=== PATIENT | male | born 1995 ===

== ENCOUNTER 2020-07-07 12:31 | Observation (INO) | payer SELFPAY ==
[~2020-07-07] VITALS: Ht 182.9 cm; Wt 59.1 kg
[~2020-07-07 12:31] MED LIST: BACTROBAN22 TOP; PROAIR HFA0.09 MG/AC IH; TRIAMCINOLONE A15 GM TP; ZYRTEC 10MG10 MG PO
[2020-07-07 13:25] LABS: BASO % 0.3 % (0.0-2.0); EOS % 0.1 % (0-4.0); GRAN # 7.4 (1.4-6.5); GRAN % 82.7 % (42.2-75.2); HEMATOCRIT 49.1 % (42.0-52.0); HEMOGLOBIN 17.3 g/dl (13.5-18.0); LYMPH # 0.9 (1.2-3.4); LYMPH % 10.1 % (20.0-51.0); MEAN CELL VOLUME 86 fl (80.0-100.0); MEAN CORPUSCULAR HEMOGLOBIN 30 pg (27.0-31.0); MEAN CORPUSCULAR HGB CONC 35 g/dl (33.0-37.0); MEAN PLATELET VOLUME 10.6 fl (7.4-10.4); MONO # 0.6 (0.1-0.6); MONO % 6.5 % (1.7-9.3); RED BLOOD COUNT 5.71 M/mm3 (4.20-5.60); REDCELL DISTRIBUTION WIDTH-CV 12.4 % (11.5-14.5)
[2020-07-07 13:27] LABS: ALBUMIN 5.6 gm/dL (3.5-5.0); ALKALINE PHOSPHATASE 134 U/L (50-136); ANION GAP 27 mmol/L (7-16); AST,SGOT 61 U/L (15-37); BILIRUBIN,TOTAL 1.8 mg/dL (0.0-1.0); BLOOD UREA NITROGEN 25 mg/dL (9-20); CALCIUM 10.5 mg/dL (8.4-10.2); CARBON DIOXIDE 15 mmol/L (22-30); CHLORIDE 96 mmol/L (98-107); CREATININE, serum 0.95 (0.66-1.25); GLUCOSE 138 mg/dL (74-106); POTASSIUM 3.7 mmol/L (3.4-5.0); SODIUM 138 mmol/L (137-145); TOTAL PROTEIN 9.6 gm/dL (6.4-8.2)
[2020-07-07 13:29] LABS: ALCOHOL(ethanol),MEDICAL < 10 mg/dL
[2020-07-07 13:34] LABS: ALANINE AMINOTRANSFERASE 36 U/L (4-49)
[2020-07-07 13:52] LABS: PLATELET COUNT 251 K/mm3 (130-400)
[2020-07-07 15:33] LABS: COLLECTION METHOD CLEAN CATCH
[2020-07-07 15:39] LABS: MUCOUS Present /lpf; PH 5 (5-8); SQUAMOUS EPITHELIAL None Seen /hpf; URINE APPEARANCE Clear; URINE BACTERIA None Seen /hpf; URINE BILIRUBIN Negative (NEGATIVE); URINE BLOOD 1+ (NEGATIVE); URINE COLOR Yellow; URINE GLUCOSE Negative (NEGATIVE); URINE KETONE 2+ (NEGATIVE); URINE LEUKOCYTE ESTERASE Negative (NEGATIVE); URINE NITRATE Negative (NEGATIVE); URINE PROTEIN(semi-quant) 2+ (NEGATIVE); URINE UROBILINOGEN Negative (NEGATIVE)
[2020-07-07 15:47] LABS: TRICYCLIC ANTIDEPRESS URINE NEGATIVE
[2020-07-07] MEDS ORDERED: ZOFRAN ODT4 MG PO (17:31)
[2020-07-07 18:08] LABS: ARTERIAL BLD GAS O2 SATURATION 98.5 % (92-100); ARTERIAL BLD GAS TCO2 CT 19.6; ARTERIAL BLOOD GAS HCO3 18.9 meq/L (22-26); ARTERIAL BLOOD GAS PO2 112.5 mmHg (80-100); ARTERIAL BLOOD GAS pH 7.59 (7.35-7.45)
[2020-07-07 18:09] LABS: ARTERIAL BLOOD GAS PCO2 20.1 mmHg (35-45)
[2020-07-07] MEDS ORDERED: ADDERALL15 MG PO (19:58)
[2020-07-07] MEDS ORDERED: LEXAPRO20 MG PO (19:58)
[2020-07-07] MEDS ORDERED: SEROQUEL 200MG200 MG PO (19:58)
[2020-07-07 20:35] LABS: ALBUMIN 4.5 gm/dL (3.5-5.0); BILIRUBIN,TOTAL 1.2 mg/dL (0.0-1.0); CREATININE, serum 0.83 (0.66-1.25); POTASSIUM 3.6 mmol/L (3.4-5.0); TOTAL PROTEIN 7.6 gm/dL (6.4-8.2)
[2020-07-07 21:14] LABS: ARTERIAL BLD GAS TCO2 CT 21.8; ARTERIAL BLOOD GAS BASE EXCESS -2.4 (-2-2); ARTERIAL BLOOD GAS HCO3 20.8 meq/L (22-26); ARTERIAL BLOOD GAS PCO2 31.7 mmHg (35-45); ARTERIAL BLOOD GAS PO2 89.2 mmHg (80-100); ARTERIAL BLOOD GAS pH 7.44 (7.35-7.45)
[2020-07-08 06:19] LABS: BASO # 0.1 (0.0-0.2); BASO % 0.8 % (0.0-2.0); EOS # 0.1 (0.0-0.7); EOS % 1.9 % (0-4.0); GRAN % 46.9 % (42.2-75.2); LYMPH # 2.5 (1.2-3.4); LYMPH % 39.4 % (20.0-51.0); MEAN CELL VOLUME 87 fl (80.0-100.0); MEAN CORPUSCULAR HEMOGLOBIN 30 pg (27.0-31.0); MEAN CORPUSCULAR HGB CONC 35 g/dl (33.0-37.0); MEAN PLATELET VOLUME 9.1 fl (7.4-10.4); MONO # 0.7 (0.1-0.6); MONO % 10.7 % (1.7-9.3); PLATELET COUNT 216 K/mm3 (130-400); RED BLOOD COUNT 4.25 M/mm3 (4.20-5.60); REDCELL DISTRIBUTION WIDTH-CV 12.7 % (11.5-14.5)
[2020-07-08 06:23] LABS: HEMOGLOBIN 12.9 g/dl (13.5-18.0)
[2020-07-08 06:29] LABS: ALBUMIN 3.5 gm/dL (3.5-5.0); BILIRUBIN,TOTAL 0.7 mg/dL (0.0-1.0); CALCIUM 8.2 mg/dL (8.4-10.2); CREATININE, serum 0.78 (0.66-1.25); POTASSIUM 3.6 mmol/L (3.4-5.0); TOTAL PROTEIN 6.1 gm/dL (6.4-8.2)
[2020-07-08] MEDS ORDERED: ZOFRAN ODT4 MG PO (10:28)
[2020-07-08 10:43] VITALS: BP 106/68; PULSE 51; TEMP 98.1
--- NOTE | 2020-07-08 13:32 | NUR ---
Patient discharged from the ED.
== END 2020-07-08 11:19 | disposition home or self-care (01) ==
LOC: COL.ER 12:31 → SURG 18:39
PROVIDERS: Family Medicine; Student in an Organized Health Care Education/Training Program; ADMIT Hospitalist
DX: E87.3 Alkalosis (principal); F12.90 Cannabis use, unspecified, uncomplicated; R11.2 Nausea with vomiting, unspecified; F41.9 Anxiety disorder, unspecified; F90.9 Attention-deficit hyperactivity disorder, unspecified type; F32.9 Major depressive disorder, single episode, unspecified; F15.90 Other stimulant use, unspecified, uncomplicated; F17.210 Nicotine dependence, cigarettes, uncomplicated; E86.0 Dehydration; J45.909 Unspecified asthma, uncomplicated; Z79.899 Other long term (current) drug therapy
CPT/HCPCS: 99223-AI; G0378; J2405; J2550; J7030; J7120